=== PATIENT | male | born 1985 | race African-American/Black ===

== ENCOUNTER 2018-03-17 17:36 | Emergency (ER) | payer OTHER ==
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
[2018-03-17 18:26] LABS: ABSOLUTE LYMPHOCYTES (AUTO) 2.1 10^3/uL (0.5-4.7); ABSOLUTE MONOCYTES (AUTO) 0.7 10^3/uL (0.1-1.4); ABSOLUTE NEUT (AUTO) 4.1 10^3/uL (1.7-8.2); BASOPHILS % (AUTO) 0.3 % (0-2); EOSINOPHILS % (AUTO) 0.6 % (0-6); HEMATOCRIT 40.7 % (37.9-51.0); HEMOGLOBIN 13.9 g/dL (13.5-17.0); LYMPHOCYTES % (AUTO) 29.9 % (13-45); MEAN CORPUSCULAR HEMOGLOBIN 30.4 pg (27.0-33.4); MEAN CORPUSCULAR HGB CONC 34.1 g/dL (32.0-36.0); MEAN CORPUSCULAR VOLUME 89 fl (80-97); MONOCYTES % (AUTO) 9.7 % (3-13); PLATELET COUNT 207 10^3/uL (150-450); RED BLOOD COUNT 4.56 10^6/uL (4.35-5.55); RED CELL DISTRIBUTION WIDTH 13.5 % (11.5-14.0); SEGMENTED NEUTROPHILS % (AUTO) 59.5 % (42-78); TOTAL CELLS COUNTED % (AUTO) 100 %; WHITE BLOOD COUNT 6.9 10^3/uL (4.0-10.5)
[2018-03-17] MEDS ORDERED: DIPH/PERTUSS(ACELL)/TETANUS VAC/PF 0.5 ML SYR (>=10YO) IM ONE (18:46)
[2018-03-17] MEDS ORDERED: CEPHALEXIN 500 MG CAPSULE PO ONE (18:50)
[2018-03-17 18:54] LABS: ALANINE AMINOTRANSFERASE 51 U/L (21-72); ALBUMIN 4.3 g/dL (3.5-5.0); ALKALINE PHOSPHATASE 65 U/L (38-126); ANION GAP 9 (5-19); ASPARTATE AMINO TRANSFERASE 46 U/L (17-59); BILIRUBIN,DIRECT 0.2 mg/dL (0.0-0.4); BILIRUBIN,TOTAL 0.8 mg/dL (0.2-1.3); BLOOD UREA NITROGEN 15 mg/dL (7-20); CALCIUM 9.7 mg/dL (8.4-10.2); CARBON DIOXIDE 27 mmol/L (22-30); CHLORIDE 106 mmol/L (98-107); GLUCOSE 76 mg/dL (75-110); POTASSIUM 4.3 mmol/L (3.6-5.0); SODIUM 141.5 mmol/L (137-145)
[2018-03-17 18:55] LABS: ACETAMINOPHEN < 10 ug/mL (10-30); ALCOHOL < 10 mg/dL (NONE DETECTED); SALICYLATE < 1.0 mg/dL (2.0-20.0)
[2018-03-17] MEDS ORDERED: ACETAMINOPHEN 325 MG TABLET PO ONE (19:04)
[2018-03-17] MEDS ORDERED: HYDROXYZINE PAMOATE 50 MG CAPSULE PO ONE (19:08)
[2018-03-17 19:15] LABS: APPEARANCE,URINE CLEAR; BILIRUBIN,URINE NEGATIVE (NEGATIVE); COLOR,URINE YELLOW; GLUCOSE, URINE NEGATIVE (NEGATIVE); KETONES,URINE NEGATIVE (NEGATIVE); LEUKOCYTE ESTERASE,URINE NEGATIVE (NEGATIVE); NITRITE,URINE NEGATIVE (NEGATIVE); PROTEIN,URINE NEGATIVE (NEGATIVE); URINE SPECIFIC GRAVITY 1.026
[2018-03-17 19:28] LABS: URINE AMPHETAMINES SCREEN NEGATIVE; URINE BARBITURATES SCREEN NEGATIVE; URINE BENZODIAZEPINES SCREEN NEGATIVE; URINE COCAINE SCREEN NEGATIVE; URINE MARIJUANA (THC) SCREEN NEGATIVE; URINE METHADONE SCREEN NEGATIVE; URINE PHENCYCLIDINE SCREEN NEGATIVE
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
--- NOTE | 2018-03-17 22:35 | EKG REPORT ---
SEVERITY:- NORMAL ECG - SINUS RHYTHM : Confirmed by: Maine Rasheed MD 17-Mar-2018 22:34:06
[2018-03-18] MEDS ORDERED: IBUPROFEN 800 MG TABLET PO ONE (08:00)
[2018-03-18] MEDS ORDERED: BUSPIRONE HCL 10 MG TABLET PO SCH ×2 (12:15→22:00)
[2018-03-18] MEDS ORDERED: BENZTROPINE MESYLATE 1 MG TABLET PO SCH (12:15)
[2018-03-18] MEDS ORDERED: VENLAFAXINE HCL 37.5 MG CAP.SR.24H PO SCH (12:15)
[2018-03-18] MEDS ORDERED: OLANZAPINE 5 MG TABLET PO SCH ×2 (12:15→18:00)
[2018-03-18] MEDS ORDERED: VENLAFAXINE HCL 37.5 MG CAP.SR.24H PO ONE (13:30)
[2018-03-18] MEDS ORDERED: OLANZAPINE 5 MG TABLET PO ONE (13:30)
[2018-03-18] MEDS ORDERED: BUSPIRONE HCL 10 MG TABLET PO ONE (13:30)
[2018-03-18] MEDS ORDERED: BENZTROPINE MESYLATE 1 MG TABLET PO ONE (13:30)
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
[2018-03-18] MEDS ORDERED: CLONIDINE HCL 0.1 MG TABLET PO SCH (22:00)
[2018-03-18] MEDS: VENLAFAXINE HCL 37.5 MG CAP.SR.24H PO SCH (22:04)
[2018-03-19] MEDS ORDERED: BUSPIRONE HCL 10 MG TABLET PO SCH (08:00)
[2018-03-19] MEDS: VENLAFAXINE HCL 37.5 MG CAP.SR.24H PO SCH (09:40)
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
[2018-03-19] MEDS ORDERED: BENZTROPINE MESYLATE 1 MG TABLET PO SCH (10:00)
[2018-03-19 11:00] VITALS: BP 118/70
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
== END 2018-03-19 11:01 | disposition home or self-care (01) ==
LOC: ER 17:36
DX: R45.851 Suicidal ideations (principal); F43.10 Post-traumatic stress disorder, unspecified; F32.9 Major depressive disorder, single episode, unspecified; Z23 Encounter for immunization; Z63.0 Problems in relationship with spouse or partner
CPT/HCPCS: 93005; 99285; 90471; 36415; 80307 ×4; 85025; 80053; 81001; 73552; 90715; 93010; J3490 ×2

== ENCOUNTER 2020-06-22 14:05 | Emergency (ER) | payer OTHER ==
[2020-06-22] MEDS ORDERED: DIPH/PERTUSS(ACELL)/TETANUS VAC/PF 0.5 ML SYR (>=10YO) IM ONE (14:36)
[2020-06-22] MEDS ORDERED: IBUPROFEN 600 MG TABLET PO ONE (14:36)
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
[2020-06-22] MEDS ORDERED: NORMAL SALINE 1000 ML 1,000 ML IV ONE ×2 (14:39→17:47)
[2020-06-22 15:24] LABS: ABSOLUTE EOSINOPHILS # (AUTO) 0.1 10^3/uL (0.0-0.6); ABSOLUTE LYMPHOCYTES (AUTO) 2.1 10^3/uL (0.5-4.7); ABSOLUTE MONOCYTES (AUTO) 0.9 10^3/uL (0.1-1.4); ABSOLUTE NEUT (AUTO) 3.3 10^3/uL (1.7-8.2); BASOPHILS % (AUTO) 0.2 % (0-2); EOSINOPHILS % (AUTO) 1.3 % (0-6); HEMATOCRIT 44.2 % (37.9-51.0); HEMOGLOBIN 15.1 g/dL (13.5-17.0); LYMPHOCYTES % (AUTO) 33.1 % (13-45); MEAN CORPUSCULAR HEMOGLOBIN 30.8 pg (27.0-33.4); MEAN CORPUSCULAR HGB CONC 34.1 g/dL (32.0-36.0); MEAN CORPUSCULAR VOLUME 90 fl (80-97); MONOCYTES % (AUTO) 14.4 % (3-13); PLATELET COUNT 249 10^3/uL (150-450); RED BLOOD COUNT 4.89 10^6/uL (4.35-5.55); RED CELL DISTRIBUTION WIDTH 13.3 % (11.5-14.0); TOTAL CELLS COUNTED % (AUTO) 100 %; WHITE BLOOD COUNT 6.4 10^3/uL (4.0-10.5)
[2020-06-22 15:42] LABS: ANION GAP 6 (5-19); BLOOD UREA NITROGEN 16 mg/dL (7-20); CALCIUM 9.5 mg/dL (8.4-10.2); CARBON DIOXIDE 29 mmol/L (22-30); CHLORIDE 103 mmol/L (98-107); CREATINE KINASE 622 U/L (55-170); GLUCOSE 87 mg/dL (75-110); POTASSIUM 4.9 mmol/L (3.6-5.0)
[2020-06-22] MEDS ORDERED: SILVER SULFADIAZINE 1% CREAM 400 GM TP ONE (18:28)
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
[2020-06-22 19:36] VITALS: BP 133/83
== END 2020-06-22 19:36 | disposition home or self-care (01) ==
LOC: ER 14:05
DX: T22.231A Burn of second degree of right upper arm, initial encounter (principal); T21.11XA Burn of first degree of chest wall, initial encounter; T22.111A Burn of first degree of right forearm, initial encounter; X08.8XXA Exposure to other specified smoke, fire and flames, initial encounter; F17.200 Nicotine dependence, unspecified, uncomplicated; R94.4 Abnormal results of kidney function studies; Z23 Encounter for immunization
CPT/HCPCS: 99284; 90471; 36415; 82550; 85025; 80048; 90715; J3490; J7030